=== PATIENT | female | born 1955 | race Caucasian/White ===

== ENCOUNTER → 2016-09-08 | Outpatient (CLI) | payer OTHER ==
[~2016-09-08] MED LIST: ASPI-428 PO; ASPI81TA28 PO; DXM/4 PO; FMR25 PO; HYDR-5688 PO; LEVO112T4 PO; LEVO137T3 PO; LORA-741 PO; NALO1TAB2 PO; ONDA4TAB46 PO; OXYC-57 PO; POLY1POW2 PO; SIMV40TA2 PO; XLD/500 PO; ZOLP10TA PO; [UNRECOGNIZED DRUG - OTHER] PO
[2016-09-08 15:45] LABS: CHOLESTEROL/HDL RATIO 4.4; THYROID STIMULATING HORMONE 7.2 uIu/ml (0.300-4.500)
== END | disposition home or self-care (01) ==
LOC: C.LABMFLN 10:21
PROVIDERS: ATTEND Family Medicine
DX: E03.9 Hypothyroidism, unspecified (principal); E78.00 Pure hypercholesterolemia, unspecified; R73.01 Impaired fasting glucose; R05 Cough; C50.912 Malignant neoplasm of unspecified site of left female breast

== ENCOUNTER → 2016-09-18 | Outpatient (CLI) | payer OTHER ==
[~2016-09-18] MED LIST changes: +GADAVIST IV PRN
--- NOTE | 2016-09-18 11:59 | DIAGNOSTIC IMAGING REPORT ---
MRI OF THE BRAIN WITHOUT AND WITH IV CONTRAST CLINICAL HISTORY: BREAST CA breast carcinoma COMPARISON STUDY: No previous studies for comparison. TECHNIQUE: Utilizing a 1.5 Heaven magnet and dedicated coil, multiplanar, multiecho imaging of the brain was performed pre and postcontrast administration. IV administration of 10.5 mL of Gadavist contrast was uneventful. FINDINGS: Enhancing lesion peripheral aspect right cerebellar hemisphere. The enhancing component measures 15 x 12 mm. Moderate surrounding vasogenic edema. No evidence for midline shift. Fourth ventricle remains midline. Several additional foci of increased signal within the periventricular deep white matter regions. These are consistent with a component of chronic small vessel change. No evidence for an acute ischemic insult. All remaining components of the study are unremarkable. IMPRESSION: 1. 15 x 12 mm enhancing nodule lateral aspect right cerebellar hemisphere. 2. Moderate surrounding vasogenic edema 3. No additional enhancing foci. 4. Also solitary, given the patient's history this is highly suspect for a metastatic deposit Electronically signed by: Kulwant Clark M.D. 09/18/2016 11:57 AM Dictated Date/Time: 09/18/2016 11:48 AM
== END | disposition home or self-care (01) ==
LOC: C.MRI 10:54
PROVIDERS: ATTEND Internal Medicine Hematology & Oncology
DX: C50.912 Malignant neoplasm of unspecified site of left female breast (principal); R90.89 Other abnormal findings on diagnostic imaging of central nervous system

== ENCOUNTER → 2016-12-24 | Outpatient (CLI) | payer OTHER ==
[~2016-12-24] MED LIST changes: -ASPI-428 PO; -DXM/4 PO; -FMR25 PO; -GADAVIST IV PRN; -LEVO137T3 PO; -OXYC-57 PO; +PRED20TA PO
[2016-12-24 14:21] VITALS: BP 101/68; PULSE 80; TEMP 37.1; O2SAT 95
--- NOTE | 2016-12-24 16:42 | Radiation Oncology Follow-Up ---
Radiation Oncology Follow-Up Date of Visit Dec 24, 2016. (Sonali Penn PA-C) Reason For Visit 3 follow-up (Sonali Penn PA-C) Radiation Completion Date 10/02/16 chest 10/09/16 brain (Sonali Penn PA-C) Diagnosis (1) Metastatic breast cancer Status: Chronic Onset Date: 07/17/2009 Stage: IV Permanent Comment: Infiltrating ductal adenocarcinoma of the left breast Status post lumpectomy and sentinel lymph node biopsy 07/17/2009 Status post systemic chemotherapy followed by radiation therapy Finding of lung metastasis status post left lung biopsy 03/21/2011 showing metastatic breast CA Status post systemic chemotherapy with Herceptin Finding of a right middle lobe lung lesion status post wedge resection 2015 metastatic breast CA Chemotherapy with Xeloda and lapatinib Increasing shortness of breath, CT showing progression of the disease in chest, referral for palliative radiation therapy Finding of metastatic lesion of the brain Status post completion of stereotactic radiosurgery to the brain 10/09/2016. She received 1700 cGy in one fraction. Status post completion of radiation therapy to the chest 10/27/2016 received 3750 cGy. Last Edited By: Sonali Penn on Dec 24, 2016 16:36 (Sonali Penn PA-C) History of Present Illness Ms. Chapin is a 61 year old female who was initially diagnosed with breast cancer involving the left breast in 2008. She was initially treated with a lumpectomy, chemotherapy and radiation therapy. She did receive radiation therapy underneath the supervision of Dr. Bright; she received 6040 cGy in 33 treatments and completed treatment on 03/26/2010. Unfortunate, the patient developed metastatic disease in her lung and did receive multiple courses of chemotherapy; however, the patient cannot tolerate chemotherapy overall. More recently, the patient did undergo a right wedge resection of a middle lobe mass that was consistent with metastatic breast cancer on 02/07/[address] Mariano. She subsequently did have a PET/CT scan on 03/19/2016 which did reveal: "IMPRESSION: 1. Interval resection of the right middle lobe pulmonary nodule. 2. There has been interval development of 2 focal areas of intense FDG uptake within the right hilum which likely represent metastatic hilar lymph nodes. 3. A 5 cm fluid collection within the left medial breast suggesting postoperative seroma. There is minimal FDG uptake surrounding this fluid collection suggestive of post therapeutic changes. 4. Intense diffuse FDG uptake in the thyroid gland. This has progressed in the interval but may be physiologic. 5. A 6 mm right perihilar nodular density may represent a normal normal tortuous pulmonary vessel. This bears watching on future examinations." The patient was subsequently started on Xeloda and Lapatinib in May 2016 underneath the supervision of Dr. Mccoy. The patient was noted to to be noncompliant with follow-up due to illness with her father. More recently, the patient has presented with increased shortness of breath. She did have a CT PE protocol completed on 09/08/2016 which revealed no evidence of pulmonary embolus however the mass in the right hilum was markedly increased in size causing severe constriction of the descending branch of the right pulmonary artery in addition to progressive mediastinal and hilar adenopathy. Dr. Mccoy has referred the patient to us for consideration of radiation therapy to the chest palliatively. Additionally, Dr. Mccoy has ordered a MRI of the brain due to the fact the patient is complaining of headaches and some imbalance. At the time of our consultation, the patient missed her appointment for her MRI of the brain. Today, the patient continues to complain of shortness of breath and some weight loss. She finds it difficult to breathing becoming more frustrating. She denies any hemoptysis, fevers, chills or night sweats. She did mention that she does have some headaches and a little bit of imbalance. The MRI of the brain did show a lesion. Decision was to treat with palliation to the chest and stereotactic radiation therapy to the brain. (Sonali Penn PA-C) Interim History She's been doing well over the past 2 months. She states that her respiratory status is 100% improved after receiving the radiation therapy. Prior to treatment to the brain she did have severe headaches these have resolved completely. She no longer has any blurred vision. Following treatment to the brain she did develop one small area of alopecia. With the treatment of the chest she did not develop any irritation of the skin. She's had no difficulty with dysphagia. She has been having some discomfort in her right buttock area which radiates to the right hip and thigh. This is been going on over the past few weeks. She did see her primary care physician in [place] today. X-rays were obtained. The results of the studies are pending. (Sonali Penn PA-C) Allergies Coded Allergies: No Known Allergies (Unverified , 02/07/16) Home Medications Scheduled Aspirin (Aspirin Ec), 81 MG PO DAILY Levothyroxine Sodium (Levothyroxine Sodium), 1 TAB PO DAILY Lorazepam (Ativan), 0.5 MG PO BID Simvastatin (Zocor), 40 MG PO DAILY Scheduled PRN Hydrocodone/Acetaminophen 5MG/325MG (Hamilton 5MG/325MG), 1 TAB PO QID PRN for Pain Ondansetron Hcl (Zofran), 4 MG PO Q6 PRN for Nausea Polyethylene Glycol 3350 (Bulk (Polyethylene Glycol 3350), 17 GM PO DAILY PRN for Constipation Zolpidem Tartrate (Ambien), 1 TAB PO HS PRN for Sleep Review of Systems Gastrointestinal: Symptoms: WNL Oral: Other Oral Symptoms: occ diff swallowing Respiratory: Symptoms: WNL Urinary: Symptoms: WNL Skin: Symptoms: No Problems (Sonali Penn PA-C) Physical Exam Vital Signs Date Time Temp Pulse Resp B/P (MAP) Pulse Ox O2 Delivery O2 Flow Rate FiO2 12/24/16 14:21 37.1 80 24 101/68 95 Pain: Pain Onset: costant Pain Duration: 3 weeks Side: Right Patient Pain Scale: 0 - 10 Initial Pain Intensity: 5.0 Pain Description: Aching Fatigue: None General Appearance: no apparent distress Eyes: normal inspection, EOMI ENT: normal ENT inspection, hearing grossly normal Neck: no adenopathy, thyroid normal Respiratory/Chest: lungs clear, no respiratory distress, no accessory muscle use Cardiovascular: regular rate, rhythm, no gallop, no murmur Neurologic/Psychiatric: 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 Yoo. She is seeing Dr. Mccoy this afternoon. She will be discussing with him the future plan of therapy. We will schedule her for a recheck MRI of the brain. She'll be notified as to results. We asked her to return to our office in 4 months. She may call our office if she has any questions or concerns in the interim. We will obtain a copy of the studies performed in [place] today. (Sonali Penn PA-C) I agree with note created by Sonali Penn PA-C. I reviewed the patient's chart and information with her. I have examined and evaluated the patient. I reviewed relevant clinical information and answered the patient's and/or family' s questions. (Veeral. Yoo MD) Total Time In Follow-Up I spent 20 minutes speaking to the patient and perform examination. I spent 50 minutes reviewing information in completing this note. (Sonali Penn PA-C) I spent 15 minutes examining and counseling the patient. (Veeral. Yoo MD) Copy To Percy Mccoy D.O.; King Carter M.D.
== END | disposition home or self-care (01) ==
LOC: C.ONC 14:10
PROVIDERS: ATTEND Physician Assistant Medical
DX: Z08 Encounter for follow-up examination after completed treatment for malignant neoplasm (principal); Z92.3 Personal history of irradiation; Z85.3 Personal history of malignant neoplasm of breast

== ENCOUNTER → 2017-02-13 | Outpatient (CLI) | payer OTHER ==
[~2017-02-13] MED LIST changes: -NALO1TAB2 PO; -XLD/500 PO; -[UNRECOGNIZED DRUG - OTHER] PO
--- NOTE | 2017-02-13 15:25 | ECHOCARDIOGRAM REPORT ---
*NOTICE TO RECEIVING [employer] This information is strictly Confidential and protected under [place] law. [place] law prohibits you from making any further disclosure of this information unless further disclosure is expressly permitted by the written consent of the person to whom it pertains or is authorized by law. A general authorization for the release of medical or other information is not sufficient for this purpose. Hospital accepts no responsibility if the information is made available to any other person, INCLUDING THE PATIENT. Interpretation Summary * Name: MELECIO BOLDEN Study Date: 02/13/2017 12:58 PM BP: 124/74 mmHg * Patient Location: [facility] HR: 82 * : 1955 (M/d/yyyy) Gender: Female Height: 61 in * Age: 61 yrs Ethnicity: CA Weight: 197 lb * Ordering Physician: Jacquelyn Jacob * Referring Physician: Jacquelyn Jacob . CARDIOLOGY SPECIALIST * Performed By: Nanette Andujar RCS * * Reason For Study: H/O BREAST CA WITH CHEMO * BSA: 1.9 m2 * -- Conclusions -- * There is borderline concentric left ventricular hypertrophy. * Left ventricular systolic function is normal. * Grade I diastolic dysfunction, (abnormal relaxation pattern). Procedure Details * A complete two-dimensional transthoracic echocardiogram was performed (2D, M-mode, Doppler and color flow Doppler). Left Ventricle * The left ventricle is normal in size. * There is borderline concentric left ventricular hypertrophy. * Left ventricular systolic function is normal. * Grade I diastolic dysfunction, (abnormal relaxation pattern). Right Ventricle * The right ventricle is normal in size and function. Atria * The left atrial size is normal. * Right atrial size is normal. Mitral Valve * The mitral valve is grossly normal. * Significant mitral regurgitation is absent. Tricuspid Valve * The tricuspid valve is not well visualized, but is grossly normal. * Significant tricuspid regurgitation is absent. Aortic Valve * The aortic valve is normal in structure and function. * No hemodynamically significant valvular aortic stenosis. * There is no significant aortic regurgitation. Great Vessels * The aortic root is normal size. Pericardium/Pleural * Large epicardial fat pad. MMode 2D Measurements and Calculations IVSd 1.3 cm IVSs 1.8 cm LVIDd 4.2 cm LVIDs 2.4 cm LVPWd 1.1 cm LVPWs 1.2 cm IVS/LVPW 1.2 FS 43.6 % EDV(Teich) 80.5 ml ESV(Teich) 20.0 ml EF(Teich) 75.2 % EDV(cubed) 76.4 ml ESV(cubed) 13.7 ml EF(cubed) 82.1 % % IVS thick 41.0 % % LVPW thick 9.6 % LV mass(C)d 178.9 grams LV mass(C)dI 95.3 grams/m\S\2 LV mass(C)s 120.7 grams LV mass(C)sI 64.3 grams/m\S\2 SV(Teich) 60.5 ml SI(Teich) 32.2 ml/m\S\2 SV(cubed) 62.7 ml SI(cubed) 33.4 ml/m\S\2 Ao root diam 2.8 cm Ao root area 6.2 cm\S\2 LA dimension 2.7 cm LA/Ao 0.95 LVOT diam 1.9 cm LVOT area 3.0 cm\S\2 Doppler Measurements and Calculations MV E max ace 67.2 cm/sec MV A max ace 86.4 cm/sec MV E/A 0.78 MV P1/2t max ace 75.3 cm/sec MV P1/2t 54.9 msec MVA(P1/2t) 4.0 cm\S\2 MV dec slope 402.2 cm/sec\S\2 MV dec time 0.21 sec Ao V2 max 133.8 cm/sec Ao max PG 7.2 mmHg Ao max PG (full) 1.7 mmHg ALBERTO(V,A) 2.6 cm\S\2 ALBERTO(V,D) 2.6 cm\S\2 LV V1 max PG 5.5 mmHg LV V1 max 117.0 cm/sec
== END | disposition home or self-care (01) ==
LOC: C.CPL 12:36
PROVIDERS: ATTEND Nurse Practitioner Family
DX: C50.912 Malignant neoplasm of unspecified site of left female breast (principal)

== ENCOUNTER → 2017-03-11 | Outpatient (CLI) | payer OTHER ==
--- NOTE | 2017-03-11 14:45 | DIAGNOSTIC IMAGING REPORT ---
(CHEST) THORAX WITH CLINICAL HISTORY: 61 years-old Female presenting with BREAST CA, CHEST PAIN, COUGH. TECHNIQUE: Multidetector CT imaging of the chest was performed after the administration of intravenous contrast. IV contrast: 92 mL of Optiray 320. A dose lowering technique was used consistent with the principles of ALARA (as low as reasonably achievable). COMPARISON: 01/05/2017. CT DOSE (mGy.cm): The estimated cumulative dose is 1390. FINDINGS: Simplex Operator topogram: Right lung opacity. On soft tissue windows, mildly prominent and heterogeneous appearing thyroid. Surgical clip or calcification noted in the superior left breast likely associated with fat necrosis. No axillary, supraclavicular, hilar, or mediastinal lymphadenopathy. Normal aorta. Normal heart size. Trace pericardial effusion, unchanged. Small right pleural effusion, new from prior. Upper abdomen normal. On lung windows, interval increase in peribronchovascular consolidation throughout the right lung with significant interval increase in the right upper lobe relative to prior exam. Overall right lung volume loss with persistent postsurgical changes along the lateral right middle lobe. Postsurgical change also noted at the superior segment of the left lower lobe. Left lung essentially clear. Mild bronchiectasis noted in the right lung. Airways patent. On bone windows, mild degenerative changes of the thoracic spine. Radiolucent lesion in the left humeral head is new from prior exam (series 4 image 43). Subchondral change in the left glenoid fossa degenerative in etiology. IMPRESSION: 1. Significant interval increase in peribronchial vascular consolidation throughout the right lung. This is most consistent with cryptogenic organizing pneumonia. Other less likely etiologies include adenocarcinoma or lymphoma. Active infection cannot be excluded. Bronchoscopy could be considered. 2. Postsurgical changes in the right and left lungs from prior resections. 3. New small right pleural effusion. 4. Interval development of lucent lesion in the left humeral head. This could raise concern for osseous metastatic disease. PET/CT may be useful for further evaluation. Electronically signed by: Jesus Alberto Diaz M.D. 03/11/2017 2:44 PM Dictated Date/Time: 03/11/2017 2:33 PM
--- NOTE | 2017-03-11 14:54 | DIAGNOSTIC IMAGING REPORT ---
ADDENDUM Addendum: Progression of extensive right lung airspace opacity since CT of January 05, 2017 may reflect postradiation change. A small right pleural effusion is nonspecific and can be assessed on subsequent exams. Electronically signed by: Abner De Souza M.D. 03/11/2017 3:00 PM Dictated Date/Time: 03/11/2017 2:[address] OF THE ABDOMEN AND PELVIS WITH CONTRAST CLINICAL HISTORY: Breast cancer. Persistent cough. Chest pain. COMPARISON STUDY: CT of the abdomen and pelvis January 05, 2017 and PET/CT March 19, 2016. TECHNIQUE: Following IV administration of 92 mL of Optiray-320, axial images of the abdomen and pelvis were obtained from the lung bases to the proximal femurs. Images were reviewed in the axial, sagittal, and coronal planes. IV contrast was administered without complication. A dose lowering technique was utilized adhering to the principles of ALARA. Oral contrast was administered. CT DOSE: 1390.00 mGy.cm FINDINGS: The chest will be reported separately. However, there has been interval increase in right lung extensive airspace opacity since prior exam of January 05, 2017. A small right pleural effusion has developed. A right inferior chest wall lesion along the inframammary fold shown on image 14 of 105 has significantly decreased in size. This now measures 1.6 x 1.1 cm. It measured 2.2 x 2 cm on exam of January 05, 2017. A 1.1 x 0.3 cm right posterior lateral chest wall lesion shown on image 11 of 105 has also significantly decreased in size. The liver, spleen, adrenal glands, kidneys and pancreas are normal. There is no evidence for a bowel obstruction. Caliber and wall thickness of small and large bowel are normal. No ascites is present. A splenule is present. No enlarged abdominal or pelvic lymph nodes are present. Numerous lytic skeletal lesions are noted. There has been mild progression since exam of January 05, 2017. A 3.9 cm lytic lesion within the right inferior pubic ramus has slightly increased in extent since prior exam. A 4.1 cm lytic right inferior sacral lesion is unchanged. A 1.3 cm anterior left femoral head lesion has developed. A 1 cm L4 spinous process lesion is new since prior exam. A 1.2 cm lesion within the left aspect of the T11 vertebral body has increased. There is slight loss of vertebral body height. A few rib lesions are noted. A small left posterior sixth rib lesion is new. IMPRESSION: Findings consistent with a mixed treatment response. Significant decrease in size of the 2 right inferior breast/chest wall lesions shown on CT of January 05, 2017. Mild progression of skeletal metastatic disease, as described above. Electronically signed by: Abner De Souza M.D. 03/11/2017 2:52 PM Dictated Date/Time: 03/11/2017 2:33 PM
== END | disposition home or self-care (01) ==
LOC: C.CTS 11:55
PROVIDERS: ATTEND Internal Medicine Hematology & Oncology
DX: C50.912 Malignant neoplasm of unspecified site of left female breast (principal)

== ENCOUNTER → 2017-03-11 | Outpatient (CLI) | payer OTHER ==
[~2017-03-11] MED LIST changes: +GADAVIST IV PRN
--- NOTE | 2017-03-11 23:01 | DIAGNOSTIC IMAGING REPORT ---
MRI OF THE BRAIN COMBO CLINICAL HISTORY: Metastatic lung cancer. COMPARISON STUDY: MRI of the brain dated 09/18/2016. TECHNIQUE: MRI of the brain was performed utilizing various T1 and T2-weighted sequences in the axial, sagittal, and coronal planes. Contrast-enhanced sequences were acquired following the administration of 9 cc of Gadavist. FINDINGS: Brain parenchyma: There is mild patchy subcortical and periventricular microangiopathic disease. There is no hemorrhage or mass effect. There is no restricted diffusion typical for acute ischemia. No extra-axial fluid collection is seen. The cerebellar tonsils are normal in configuration. A metastatic lesion in the right cerebellar hemisphere has decreased in size from 09/18/2016. This measures 1.0 cm (previously measured up to 1.6 cm). The degree of surrounding edema has also improved. No additional parenchymal lesions are identified. Ventricles, sulci, and cisterns: Normal in configuration. Pituitary and sella: Unremarkable. Intracranial vasculature: Normal flow voids are maintained at the skull base. Orbits: The bony orbits are grossly intact. Orbital contents are normal in appearance. Sinuses and mastoids: Clear. Calvarium: There are at least 3 metastatic calvarial lesions identified. The largest is at the posterior vertex on high-resolution axial image #126 and measures 1.3 cm. Additional calvarial lesions are seen posteriorly on images #123, #106, and #67. These are new from previous. Cervical cord: Partially visualized cervical spinal cord is normal in morphology and signal intensity. IMPRESSION: 1. There has been decrease in size on the right cerebellar metastatic lesion as compared to the 09/18/2016 examination. 2. No new parenchymal lesions are identified. 3. There are metastatic calvarial lesions identified. These are new from 09/18/2016. 4. There is no hemorrhage or evidence of acute ischemia. Electronically signed by: Hari Banks M.D. 03/11/2017 11:00 PM Dictated Date/Time: 03/11/2017 10:52 PM
== END | disposition home or self-care (01) ==
LOC: C.MRI 12:05
PROVIDERS: ATTEND Physician Assistant Medical
DX: C50.912 Malignant neoplasm of unspecified site of left female breast (principal); C78.02 Secondary malignant neoplasm of left lung; C79.31 Secondary malignant neoplasm of brain

== ENCOUNTER → 2017-04-28 | Outpatient (CLI) | payer OTHER ==
[~2017-04-28] MED LIST changes: -GADAVIST IV PRN
[2017-04-28 14:00] VITALS: BP 106/75; PULSE 104; TEMP 37; O2SAT 96
--- NOTE | 2017-04-28 16:20 | Radiation Oncology Follow-Up ---
Radiation Oncology Follow-Up Date of Visit Apr 28, 2017. Reason For Visit 3 month follow-up Radiation Completion Date Brain radiation 10/09/16;RT to chest 10/27/16 Diagnosis (1) Metastatic breast cancer Status: Chronic Onset Date: 07/17/2009 Stage: IV Permanent Comment: Infiltrating ductal adenocarcinoma of the left breast Status post lumpectomy and sentinel lymph node biopsy 07/17/2009 Status post systemic chemotherapy followed by radiation therapy Finding of lung metastasis status post left lung biopsy 03/21/2011 showing metastatic breast CA Status post systemic chemotherapy with Herceptin Finding of a right middle lobe lung lesion status post wedge resection 2015 metastatic breast CA Chemotherapy with Xeloda and lapatinib Increasing shortness of breath, CT showing progression of the disease in chest, referral for palliative radiation therapy Finding of metastatic lesion of the brain Status post completion of stereotactic radiosurgery to the brain 10/09/2016. She received 1700 cGy in one fraction. Status post completion of radiation therapy to the chest 10/27/2016 received 3750 cGy. Last Edited By: Sonali Penn on Dec 24, 2016 16:36 History of Present Illness Ms. Chapin is a 61 year old female who was initially diagnosed with breast cancer involving the left breast in 2008. She was initially treated with a lumpectomy, chemotherapy and radiation therapy. She did receive radiation therapy underneath the supervision of Dr. Bright; she received 6040 cGy in 33 treatments and completed treatment on 03/26/2010. Unfortunate, the patient developed metastatic disease in her lung and did receive multiple courses of chemotherapy; however, the patient cannot tolerate chemotherapy overall. More recently, the patient did undergo a right wedge resection of a middle lobe mass that was consistent with metastatic breast cancer on 02/07/[address] Mariano. She subsequently did have a PET/CT scan on 03/19/2016 which did reveal: "IMPRESSION: 1. Interval resection of the right middle lobe pulmonary nodule. 2. There has been interval development of 2 focal areas of intense FDG uptake within the right hilum which likely represent metastatic hilar lymph nodes. 3. A 5 cm fluid collection within the left medial breast suggesting postoperative seroma. There is minimal FDG uptake surrounding this fluid collection suggestive of post therapeutic changes. 4. Intense diffuse FDG uptake in the thyroid gland. This has progressed in the interval but may be physiologic. 5. A 6 mm right perihilar nodular density may represent a normal normal tortuous pulmonary vessel. This bears watching on future examinations." The patient was subsequently started on Xeloda and Lapatinib in May 2016 underneath the supervision of Dr. Mccoy. The patient was noted to to be noncompliant with follow-up due to illness with her father. More recently, the patient has presented with increased shortness of breath. She did have a CT PE protocol completed on 09/08/2016 which revealed no evidence of pulmonary embolus however the mass in the right hilum was markedly increased in size causing severe constriction of the descending branch of the right pulmonary artery in addition to progressive mediastinal and hilar adenopathy. Dr. Mccoy has referred the patient to us for consideration of radiation therapy to the chest palliatively. Additionally, Dr. Mccoy has ordered a MRI of the brain due to the fact the patient is complaining of headaches and some imbalance. At the time of our consultation, the patient missed her appointment for her MRI of the brain. Today, the patient continues to complain of shortness of breath and some weight loss. She finds it difficult to breathing becoming more frustrating. She denies any hemoptysis, fevers, chills or night sweats. She did mention that she does have some headaches and a little bit of imbalance. The MRI of the brain did show a lesion. Decision was to treat with palliation to the chest and stereotactic radiation therapy to the brain. She then returned and completed radiation therapy to the chest. This was completed on 10/27/2016. She received 3750 cGy. Interim History She's been followed closely over the past 3 months. She had a recheck CT December 2016. This unfortunately showed progression in the chest. She was started on chemotherapy. She has been receiving this every 3 weeks since February. She is tolerating it well. She denies any nausea or vomiting. No problems with diarrhea. She had a recheck MRI of the brain on 03/11/2017. This showed that there had been decreased in size of the right cerebellar metastatic lesion compared to 09/18/2016. There was no new parenchymal lesions identified. She did have metastatic calvarial lesions that were new since 09/18/2016. There are no areas of hemorrhage or evidence of acute ischemia. She does have an issue with the recurring cough. She was referred to a bag sorter in [place]. She had a bronchoscopy. Cultures were taken. She stated that these are pending. Depending on the results the physician plans to treat her accordingly. Allergies Coded Allergies: No Known Allergies (Unverified , 02/07/16) Home Medications Scheduled Aspirin (Aspirin Ec), 81 MG PO DAILY Levothyroxine Sodium (Levothyroxine Sodium), 1 TAB PO DAILY Lorazepam (Ativan), 0.5 MG PO BID Prednisone (Prednisone), 1 TAB PO DAILY Simvastatin (Zocor), 40 MG PO DAILY Scheduled PRN Hydrocodone/Acetaminophen 5MG/325MG ([place] 5MG/325MG), 1 TAB PO QID PRN for Pain Ondansetron Hcl (Zofran), 4 MG PO Q6 PRN for Nausea Polyethylene Glycol 3350 (Bulk (Polyethylene Glycol 3350), 17 GM PO DAILY PRN for Constipation Zolpidem Tartrate (Ambien), 1 TAB PO HS PRN for Sleep Review of Systems Gastrointestinal: Symptoms: WNL Oral: Symptoms: No Problems Respiratory: Symptoms: Dry Cough, SOB With Exertion Sputum Character: Dry cough that's been bothersome since December 2016 Urinary: Symptoms: WNL Skin: Symptoms: No Problems Breast: Right Upper Arm Measurement: 37.5 Right Mid Arm Measurement: 26.5 Right Wrist Measurement: 16.5 Left Upper Arm Measurement: 35.5 Left Mid Arm Measurement: 25.8 Left Wrist Measurement: 16.5 Arm Dominence: Right Physical Exam Vital Signs Date Time Temp Pulse Resp B/P (MAP) Pulse Ox O2 Delivery O2 Flow Rate FiO2 04/28/17 14:00 37.0 104 28 106/75 96 Pain: Patient Pain Scale: 0 - 10 Initial Pain Intensity: 0.0 Fatigue: None General Appearance: no apparent distress Eyes: normal inspection, EOMI ENT: normal ENT inspection, hearing grossly normal Respiratory/Chest: lungs clear, no respiratory distress, no accessory muscle use, + decreased breath sounds Cardiovascular: regular rate, rhythm, no gallop, no murmur Extremities: no pedal edema Neurologic/Psychiatric: manager report II-XII nml as tested, no motor/sensory deficits, alert, normal mood/affect Skin: warm/dry Laboratory Studies Test 02/13/17 10:17 03/17/17 09:23 04/28/17 09:49 Magnesium Level 2.3 mg/dl (1.8-2.4) CA 15-3 Antigen 93 U/mL (<32) CA 27.29 169 U/ML (<38) White Blood Count 5.55 K/uL (4.8-10.8) 5.22 K/uL (4.8-10.8) Red Blood Count 3.42 M/uL (4.2-5.4) 3.62 M/uL (4.2-5.4) Hemoglobin 10.8 g/dL (12.0-16.0) 11.9 g/dL (12.0-16.0) Hematocrit 32.7 % (37-47) 35.7 % (37-47) Mean Corpuscular Volume 95.6 fL (80-100) 98.6 fL (80-100) Mean Corpuscular Hemoglobin 31.6 pg (25-34) 32.9 pg (25-34) Mean Corpuscular Hemoglobin Concent 33.0 g/dl (32-36) 33.3 g/dl (32-36) Platelet Count 282 K/uL (130-400) 216 K/uL (130-400) Mean Platelet Volume 9.2 fL (7.4-10.4) 9.3 fL (7.4-10.4) Neutrophils (%) (Auto) 67.5 % 56.9 % Lymphocytes (%) (Auto) 17.5 % 28.5 % Monocytes (%) (Auto) 11.0 % 11.5 % Eosinophils (%) (Auto) 2.9 % 2.5 % Basophils (%) (Auto) 0.9 % 0.6 % Neutrophils # (Auto) 3.75 K/uL (1.4-6.5) 2.97 K/uL (1.4-6.5) Lymphocytes # (Auto) 0.97 K/uL (1.2-3.4) 1.49 K/uL (1.2-3.4) Monocytes # (Auto) 0.61 K/uL (0.11-0.59) 0.60 K/uL (0.11-0.59) Eosinophils # (Auto) 0.16 K/uL (0-0.5) 0.13 K/uL (0-0.5) Basophils # (Auto) 0.05 K/uL (0-0.2) 0.03 K/uL (0-0.2) RDW Standard Deviation 55.0 fL (36.4-46.3) 63.3 fL (36.4-46.3) RDW Coefficient of Variation 16.0 % (11.5-14.5) 17.5 % (11.5-14.5) Immature Granulocyte % (Auto) 0.2 % 0.0 % Immature Granulocyte # (Auto) 0.01 K/uL (0.00-0.02) 0.00 K/uL (0.00-0.02) Sodium Level 138 mmol/L (136-145) 138 mmol/L (136-145) Potassium Level 3.8 mmol/L (3.5-5.1) 3.9 mmol/L (3.5-5.1) Chloride Level 103 mmol/L (98-107) 105 mmol/L (98-107) Carbon Dioxide Level 28 mmol/L (21-32) 27 mmol/L (21-32) Anion Gap 7.0 mmol/L (3-11) 6.0 mmol/L (3-11) Blood Urea Nitrogen 17 mg/dl (7-18) 18 mg/dl (7-18) Creatinine 0.78 mg/dl (0.60-1.20) 0.91 mg/dl (0.60-1.20) Est Creatinine Clear Calc Drug Dose 83.0 ml/min 71.2 ml/min Estimated GFR () 95.8 79.5 Estimated GFR (Non- 82.6 68.6 BUN/Creatinine Ratio 21.3 (10-20) 20.2 (10-20) Random Glucose 102 mg/dl (70-99) 100 mg/dl (70-99) Calcium Level 9.4 mg/dl (8.5-10.1) 9.4 mg/dl (8.5-10.1) Total Bilirubin 0.4 mg/dl (0.2-1) 0.3 mg/dl (0.2-1) Aspartate Amino Transferase (AST) 18 U/L (15-37) 20 U/L (15-37) Alanine Aminotransferase (ALT) 12 U/L (12-78) 14 U/L (12-78) Alkaline Phosphatase 125 U/L (45-117) 103 U/L (45-117) Total Protein 8.3 gm/dl (6.4-8.2) 8.1 gm/dl (6.4-8.2) Albumin 3.0 gm/dl (3.4-5.0) 3.5 gm/dl (3.4-5.0) Globulin 5.3 gm/dl (2.5-4.0) 4.6 gm/dl (2.5-4.0) Albumin/Globulin Ratio 0.6 (0.9-2) 0.8 (0.9-2) Additional Studies Patient: MELECIO CHAPIN Address1: [address] [facility] Rec: [id number] Address2: Acct ID: [id number] [facility] Zip: [place] [address] Date: 1955 Sex: F Room/Bed: Ref Phy: King Carter M.D. SC: C.MRI Att Phy: Sonali Penn PA-C Report #: [id number] Erica Phy: King Carter M.D. Test: [facility] Admit Phy: Engine Repairer Service: ELIAS Interpreting Phy: Hari Banks M.D. Diagnosis: LUNG TO BRAIN CA, BREAST CA *SRS PROTOCOL, THIN Ordering Phy: Sonali Penn PA-C Service Date: 03/11/17 Admit Date: 03/11/17 MNE: [id number] CONF: DICTATED BY: Hari Banks M.D.]] CC: Sonali Penn PA-C Murray, Michael ., M.D. Endcc: [~ rep ct add3]] MRI OF THE BRAIN COMBO CLINICAL HISTORY: Metastatic lung cancer. COMPARISON STUDY: MRI of the brain dated 09/18/2016. TECHNIQUE: MRI of the brain was performed utilizing various T1 and T2-weighted sequences in the axial, sagittal, and coronal planes. Contrast-enhanced sequences were acquired following the administration of 9 cc of Gadavist. FINDINGS: Brain parenchyma: There is mild patchy subcortical and periventricular microangiopathic disease. There is no hemorrhage or mass effect. There is no restricted diffusion typical for acute ischemia. No extra-axial fluid collection is seen. The cerebellar tonsils are normal in configuration. A metastatic lesion in the right cerebellar hemisphere has decreased in size from 09/18/2016. This measures 1.0 cm (previously measured up to 1.6 cm). The degree of surrounding edema has also improved. No additional parenchymal lesions are identified. Ventricles, sulci, and cisterns: Normal in configuration. Pituitary and sella: Unremarkable. Intracranial vasculature: Normal flow voids are maintained at the skull base. Orbits: The bony orbits are grossly intact. Orbital contents are normal in appearance. Sinuses and mastoids: Clear. Calvarium: There are at least 3 metastatic calvarial lesions identified. The largest is at the posterior vertex on high-resolution axial image #126 and measures 1.3 cm. Additional calvarial lesions are seen posteriorly on images #123, #106, and #67. These are new from previous. Cervical cord: Partially visualized cervical spinal cord is normal in morphology and signal intensity. IMPRESSION: 1. There has been decrease in size on the right cerebellar metastatic lesion as compared to the 09/18/2016 examination. 2. No new parenchymal lesions are identified. 3. There are metastatic calvarial lesions identified. These are new from 09/18/2016. 4. There is no hemorrhage or evidence of acute ischemia. Electronically signed by: Hari Banks M.D. 03/11/2017 11:00 PM Dictated Date/Time: 03/11/2017 10:52 PM Patient: MELECIO CHAPIN Address1: [address] [place] [address] Rec: [id number] Address2: Acct ID: [id number] [facility] Zip: [place] [address] Date: 1955 Sex: F Room/Bed: Ref Phy: King Carter M.D. SC: C.CTS Att Phy: Percy Mccoy D.O. Report #: [id number] Erica Phy: King Carter M.D. Test: [facility] Admit Phy: Engine Repairer Service: SORAYA Interpreting Phy: Abner De Souza MD Diagnosis: BREAST CA, CHEST PAIN, COUGH Ordering Phy: Percy Mccoy D.O. Service Date: 03/11/17 Admit Date: 03/11/17 MNE: [id number] CONF: DICTATED BY: Abner De Souza MD]] CC: Percy Mccoy D.O., Michael ., M.D. [facility]: [~ rep ct add3]] ADDENDUM Addendum: Progression of extensive right lung airspace opacity since CT of January 05, 2017 may reflect postradiation change. A small right pleural effusion is nonspecific and can be assessed on subsequent exams. Electronically signed by: Abner De Souza M.D. 03/11/2017 3:00 PM Dictated Date/Time: 03/11/2017 2:[address] OF THE ABDOMEN AND PELVIS WITH CONTRAST CLINICAL HISTORY: Breast cancer. Persistent cough. Chest pain. COMPARISON STUDY: CT of the abdomen and pelvis January 05, 2017 and PET/CT March 19, 2016. TECHNIQUE: Following IV administration of 92 mL of Optiray-320, axial images of the abdomen and pelvis were obtained from the lung bases to the proximal femurs. Images were reviewed in the axial, sagittal, and coronal planes. IV contrast was administered without complication. A dose lowering technique was utilized adhering to the principles of ALARA. Oral contrast was administered. CT DOSE: 1390.00 mGy.cm FINDINGS: The chest will be reported separately. However, there has been interval increase in right lung extensive airspace opacity since prior exam of January 05, 2017. A small right pleural effusion has developed. A right inferior chest wall lesion along the inframammary fold shown on image 14 of 105 has significantly decreased in size. This now measures 1.6 x 1.1 cm. It measured 2.2 x 2 cm on exam of January 05, 2017. A 1.1 x 0.3 cm right posterior lateral chest wall lesion shown on image 11 of 105 has also significantly decreased in size. The liver, spleen, adrenal glands, kidneys and pancreas are normal. There is no evidence for a bowel obstruction. Caliber and wall thickness of small and large bowel are normal. No ascites is present. A splenule is present. No enlarged abdominal or pelvic lymph nodes are present. Numerous lytic skeletal lesions are noted. There has been mild progression since exam of January 05, 2017. A 3.9 cm lytic lesion within the right inferior pubic ramus has slightly increased in extent since prior exam. A 4.1 cm lytic right inferior sacral lesion is unchanged. A 1.3 cm anterior left femoral head lesion has developed. A 1 cm L4 spinous process lesion is new since prior exam. A 1.2 cm lesion within the left aspect of the T11 vertebral body has increased. There is slight loss of vertebral body height. A few rib lesions are noted. A small left posterior sixth rib lesion is new. IMPRESSION: Findings consistent with a mixed treatment response. Significant decrease in size of the 2 right inferior breast/chest wall lesions shown on CT of January 05, 2017. Mild progression of skeletal metastatic disease, as described above. Electronically signed by: Abner De Souza M.D. 03/11/2017 2:52 PM Dictated Date/Time: 03/11/2017 2:33 PM Assessment & Plan Plan: Continue follow-up with the bag sorter from [place]. She is on steroid therapy to help her cough. The cultures are pending. She'll be treated accordingly. Continue follow-up with medical oncology. She is having chemotherapy every 3 weeks. It is planned that she'll have recheck scanning in May. The MRI was reviewed. We will schedule her for a recheck MRI of the brain in 5 weeks with an appointment to follow in 6 weeks. We are doing this so that she can see us on a day that she has her chemotherapy and can combine her visits. She may call if she has any questions or concerns. The patient was seen and examined by Dr. Yoo. Assessment & Plan (Attending) ADDENDUM: I agree with note created by Sonali Penn PA-C. I reviewed the patient's chart and information with her. I have examined and evaluated the patient. I reviewed relevant clinical information and answered the patient's and /or family's questions. MERCANTILE REPORTER Total Time In Follow-Up I spent 20 minutes speaking to the patient performing examination. I spent 15 minutes reviewing information completing this note. AK Total Time (Attending) In Follow-Up I spent 15 minutes examining and counseling the patient. MERCANTILE REPORTER Copy To Percy Mccoy D.O.; King Carter M.D.
== END | disposition home or self-care (01) ==
LOC: C.ONC 13:16
PROVIDERS: ATTEND Physician Assistant Medical
DX: Z08 Encounter for follow-up examination after completed treatment for malignant neoplasm (principal); Z92.3 Personal history of irradiation; Z85.3 Personal history of malignant neoplasm of breast

== ENCOUNTER → 2017-07-02 | Outpatient (CLI) | payer OTHER ==
[2017-07-02 18:15] LABS: ALT/SGPT 17 U/L (12-78); CHOLESTEROL 238 mg/dl (0-200); CHOLESTEROL/HDL RATIO 4.3; HDL CHOLESTEROL 55 mg/dl; TRIGLYCERIDES 121 mg/dl (0-150); VERY LOW DENSITY LIPOPROT CALC 24 mg/dl
== END | disposition home or self-care (01) ==
LOC: C.LABMFLN 12:15
PROVIDERS: ATTEND Family Medicine
DX: Z00.00 Encounter for general adult medical examination without abnormal findings (principal); E03.9 Hypothyroidism, unspecified; E78.00 Pure hypercholesterolemia, unspecified

== ENCOUNTER → 2017-10-09 | Outpatient (CLI) | payer OTHER ==
[2017-10-09 19:02] LABS: BLOOD UREA NITROGEN 19 mg/dl (7-18); CREATININE 0.77 mg/dl (0.60-1.20)
== END | disposition home or self-care (01) ==
LOC: C.LABMFLN 16:04
PROVIDERS: ATTEND Family Medicine
DX: H53.9 Unspecified visual disturbance (principal); F32.9 Major depressive disorder, single episode, unspecified